=== PATIENT | female | born 1960 | race Native Hawaiian/Other Pacific Islander ===

== ENCOUNTER 2018-08-09 09:23 | Outpatient (CLI) | payer OTHER ==
[2018-08-09 10:00] LABS: PLATELET COUNT 183 K/uL (152-353)
== END 2018-08-09 21:03 | disposition home or self-care (01) ==
LOC: LABW 09:23
PROVIDERS: Family Medicine
DX: I10 Essential (primary) hypertension (principal); F41.9 Anxiety disorder, unspecified; E55.9 Vitamin D deficiency, unspecified; K21.9 Gastro-esophageal reflux disease without esophagitis; Z11.59 Encounter for screening for other viral diseases
CPT/HCPCS: 36415; 80053; 80061; 80074; 81000; 82306; 83735; 84439; 84443; 85027

== ENCOUNTER 2019-08-17 10:33 | Observation (INO) | payer OTHER ==
[~2019-08-17] VITALS: Ht 160 cm; Wt 58.1 kg
[2019-08-17 14:24] LABS: PLATELET COUNT 275 K/uL (152-353)
[2019-08-17 15:19] LABS: POTASSIUM 4.1 mmol/L (3.6-5.2); SODIUM 135 mmol/L (136-145)
[2019-08-17 15:49] VITALS: BP 155/71; TEMP 98.1
[2019-08-17 17:17] VITALS: BP 166/88; TEMP 97.3; Ht 160 cm; Wt 58.1 kg
[2019-08-17] MEDS ORDERED: BENICAR20 MG PO (17:29)
[2019-08-17] MEDS ORDERED: FIORICET 50-3001 CAP PO (17:30)
[2019-08-17] MEDS ORDERED: MAGNESIUM400 M1 PO (17:31)
[2019-08-17] MEDS ORDERED: DIAZEPAM10 M2 PO (17:31)
[2019-08-17] MEDS ORDERED: GABA300C2 PO (17:32)
[2019-08-17] MEDS ORDERED: PERCOCET1 TA3 PO (17:33)
[2019-08-17] MEDS ORDERED: IMIPRAMINE HCL10 MG PO (17:34)
[2019-08-17] MEDS ORDERED: QUETIAPINE200 MG PO (17:35)
[2019-08-17] MEDS ORDERED: TERAZOSIN2 MG PO (17:36)
[2019-08-17] MEDS ORDERED: PROVENTIL108 MCG/AC INH (17:37)
[2019-08-17] MEDS ORDERED: TOPIRAMATE15 MG PO (17:38)
[2019-08-17] MEDS ORDERED: SOD CHLORIDE1 GM PO (17:39)
[2019-08-17] MEDS ORDERED: TOVIAZ4 MG PO (17:40)
[2019-08-17 20:00] VITALS: BP 155/76; TEMP 98.3
[2019-08-18] VITALS: BP 154/85; TEMP 98
[2019-08-18 04:00] VITALS: BP 155/83; TEMP 98.4
[2019-08-18 08:00] VITALS: BP 160/110; TEMP 96.7
[2019-08-18 09:09] LABS: PLATELET COUNT 224 K/uL (152-353)
[2019-08-18 12:10] VITALS: BP 150/80; TEMP 97.9
[2019-08-18 16:10] VITALS: BP 150/70; TEMP 97.7
[2019-08-18 19:34] VITALS: BP 150/65; TEMP 97.9
[2019-08-19] VITALS: BP 152/74; TEMP 97.5
[2019-08-19 04:00] VITALS: BP 111/60; TEMP 97.7
[2019-08-19 04:19] LABS: PLATELET COUNT 215 K/uL (152-353)
[2019-08-19 04:43] LABS: POTASSIUM 3.6 mmol/L (3.6-5.2)
[2019-08-19 08:28] VITALS: BP 113/74; TEMP 97.9
[2019-08-19 12:09] VITALS: BP 154/68; TEMP 97.7
== END 2019-08-19 13:29 | disposition home or self-care (01) ==
LOC: MED/SURG 10:33
PROVIDERS: Internal Medicine; ADMIT Family Medicine
DX: R51 Headache (principal); J44.9 Chronic obstructive pulmonary disease, unspecified; I12.9 Hypertensive chronic kidney disease with stage 1 through stage 4 chronic kidney disease, or unspecified chronic kidney disease; N18.3 Chronic kidney disease, stage 3 (moderate)
CPT/HCPCS: 36415; 80053; 80307; 81000; 82550; 84439; 84443; 84484; 85027; 93005; 99220; G0378; G0379; J3490